=== PATIENT | male | born 1960 | race Caucasian/White ===

== ENCOUNTER → 2016-08-03 | Outpatient (REF) | payer BC ==
[~2016-08-03] MED LIST: /WARF25TA; /WARF5TA PO; ACCO20TA4; ACCU40TA PO; ACET65TA PO; ALEV220C2 PO; AMBI10TA; AMLO5CAP52 PO; BAYETAB2 PO; BISO5TAB2 PO; CENTTAB PO; COUM10TA PO; COUM7.5T PO; FENO160T10 PO; HYDR25TA6; NUCY100T8 PO; NUCY50TA9 PO; PERC10TA PO; PERC5TAB8; PERC7.5T12 PO; QUIN20TA PO; TRIC145T19; TYLE167L PO; imodium OR
[2016-08-03 12:16] LABS: ALBUMIN 4.1 GM/DL (3.2-5.2); ALBUMIN/GLOBULIN RATIO 1.37 (1.00-1.93); ALKALINE PHOSPHATASE 45 U/L (45-117); ALT/SGPT 37 U/L (12-78); ANION GAP 9 MEQ/L (8-16); AST/SGOT 24 U/L (15-37); BILIRUBIN,TOTAL 0.4 MG/DL (0.2-1.0); BLOOD UREA NITROGEN 23 MG/DL (7-18); CALCIUM LEVEL 9.1 MG/DL (8.5-10.1); CARBON DIOXIDE LEVEL 25 MEQ/L (21-32); CHLORIDE LEVEL 109 MEQ/L (98-107); CHOLESTEROL LEVEL 189 MG/DL (<200); CREATININE FOR GFR 1.27 MG/DL (0.70-1.30); GLOMERULAR FILTRATION RATE > 60.0 (>56); GLUCOSE, FASTING 107 MG/DL (70-105); POTASSIUM SERUM 4.5 MEQ/L (3.5-5.1); SODIUM LEVEL 143 MEQ/L (136-145); TOTAL PROTEIN 7.1 GM/DL (6.4-8.2); TRIGLYCERIDES LEVEL 172 MG/DL (<150)
== END ==
LOC: M SFHCPLAZ 08:01
PROVIDERS: ATTEND Internal Medicine
DX: Z00.00 Encounter for general adult medical examination without abnormal findings (principal); I10 Essential (primary) hypertension; E78.00 Pure hypercholesterolemia, unspecified; G47.30 Sleep apnea, unspecified

== ENCOUNTER → 2016-08-11 | Outpatient (REF) | payer BC ==
[~2016-08-11] MED LIST changes: +NUCY100T3 PO; -NUCY100T8 PO; +NUCY50TA6 PO; -NUCY50TA9 PO
== END ==
LOC: M SFHCPLAZ 08:06
PROVIDERS: ATTEND Internal Medicine
DX: R53.82 Chronic fatigue, unspecified (principal)

== ENCOUNTER → 2017-01-04 | Outpatient (CLI) | payer BC ==
[~2017-01-04] MED LIST changes: +ENERGY PO; +MULT1TAB10 PO; +TRAZ50TA11 PO; +[UNRECOGNIZED DRUG - OTHER] PO
[2017-01-04 10:32] LABS: MEAN CORPUSCULAR HEMOGLOBIN 31.2 pg (27.0-33.0); MEAN CORPUSCULAR HGB CONC 34.1 g/dl (32.0-36.5); MEAN CORPUSCULAR VOLUME 91.7 fl (80.0-96.0); PLATELET COUNT, AUTOMATED 148 10^3/uL (150-450); RED CELL DISTRIBUTION WIDTH 13.4 % (11.5-14.5); WHITE BLOOD COUNT 10.2 10^3/uL (4.0-10.0)
[2017-01-04 10:46] LABS: INR 0.96
[2017-01-04 10:49] LABS: ALBUMIN 3.9 GM/DL (3.2-5.2); ALBUMIN/GLOBULIN RATIO 1.11 (1.00-1.93); ALKALINE PHOSPHATASE 45 U/L (45-117); ALT/SGPT 33 U/L (12-78); ANION GAP 7 MEQ/L (8-16); AST/SGOT 26 U/L (7-37); BILIRUBIN,TOTAL 0.5 MG/DL (0.2-1.0); BLOOD UREA NITROGEN 16 MG/DL (7-18); CALCIUM LEVEL 9.3 MG/DL (8.5-10.1); CARBON DIOXIDE LEVEL 27 MEQ/L (21-32); CHLORIDE LEVEL 109 MEQ/L (98-107); CREATININE FOR GFR 1.23 MG/DL (0.70-1.30); GLOMERULAR FILTRATION RATE > 60.0 (>56); GLUCOSE, FASTING 99 MG/DL (70-105); POTASSIUM SERUM 4.4 MEQ/L (3.5-5.1); SODIUM LEVEL 143 MEQ/L (136-145); TOTAL PROTEIN 7.4 GM/DL (6.4-8.2)
[2017-01-04 10:56] LABS: PLT CLUMPS? POS FLAG; POS COUNT POS FLAG
[2017-01-04 10:57] LABS: ERYTHROCYTE SEDIMENTATION RATE 2 mm/hr (0-20)
--- NOTE | 2017-01-04 11:18 | REP ---
Clinical: Arthritis . Comparison: 12/06/2013 . Technique: PA and lateral. Findings: The mediastinum and cardiac silhouette are normal. The lung cast are clear and without acute consolidation, effusion, or pneumothorax. The skeletal structures are intact and normal. Impression: 1. No acute cardiopulmonary process. Signed by Min Herr MD 01/04/2017 11:09 A
--- NOTE | 2017-01-04 13:40 | ECGEPIP ---
Stationary ECG Study [facility] Test Date: 2017-01-04 Pat Name: HOMERO GUILLAUME Department: Room: - Gender: M [employer]: : [id number] Requested By: Austen Vela Order Number: [id number] Reading MD: Ana Henson Measurements Intervals [place] Rate: 50 P: 50 RI: 193 QRS: 18 QRSD: 86 T: 162 QT: 453 QTc: 414 Interpretive Statements SINUS BRADYCARDIA LEFT ATRIAL ENLARGEMENT MODERATE ST T-WAVE ABNORMALITY, CONSIDER LATERAL ISCHEMIA/LVH SIMILAR TO 12/06/13 [address] FOR [address]IGHTLY MORE ST DEPRESSION CLINICAL ALBINO Electronically Signed On 01-04-2017 13:39:42 EST by Ana Henson
== END ==
LOC: M ADMPAT 09:30
PROVIDERS: ATTEND Orthopaedic Surgery
DX: M17.12 Unilateral primary osteoarthritis, left knee (principal)

== ENCOUNTER → 2017-01-11 | Outpatient (REF) | payer BC | LOC: M SFHCPLAZ 08:31 | PROVIDERS: ATTEND Internal Medicine | DX: Z01.818 Encounter for other preprocedural examination (principal); M17.12 Unilateral primary osteoarthritis, left knee; N13.9 Obstructive and reflux uropathy, unspecified; R53.82 Chronic fatigue, unspecified ==

== ENCOUNTER 2017-01-17 07:06 | Inpatient (IN) | payer BC ==
--- NOTE | 2017-01-13 13:21 | HPE ---
DATE OF ADMISSION: 01/17/2017 ATTENDING PHYSICIAN: Dr. Vela CHIEF COMPLAINT: Left knee pain and stiffness. HISTORY: This a pleasant, 57-year-old male patient with progressively worsening left knee pain and stiffness who has failed to improve with conservative management. He has pain with weightbearing activities and activities of daily living. He was consented by Dr. Vela for a left total knee arthroplasty. X-rays notable for end-stage degenerative changes of the left knee. ALLERGIES: MORPHINE makes him nauseated. ZOCOR and LIPITOR cause joint pain, but he can take morphine it just makes him nauseated and jittery. CURRENT MEDICATIONS: Include: - Imodium 2 mg 1 tablet once per day - Aleve 220 mg 1 tablet once per day (Will discontinue that 5 days prior to surgery.) - Centrum Silver 1 tablet once per day - Cialis 20 mg 1 tablet as needed - amlodipine/benazepril 5/40 mg 1 tablet once per day - as well as bisoprolol/hydrochlorothiazide 5/6.25 mg 1 tablet once per day - fenofibrate 160 mg 1 tablet once per day - trazodone 50 mg 1 tablet at bedtime MEDICAL HISTORY: Includes symptomatic osteoarthritis of the left knee, hypertension, elevated cholesterol, sleep apnea, elevated glucose, obstructive uropathy, chronic fatigue, insomnia. He was directed to bring his continuous positive airway pressure (CPAP) machine with him to the hospital. SURGICAL HISTORY: Includes left total hip revision, left knee scope, right hip replacement, right knee replacement, hernia repair. SOCIAL HISTORY: He does not smoke. He uses alcohol on occasional basis. 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 REVIEW OF SYSTEMS: Denies fever or chills. Denies chest pain, shortness breath or cough. Denies difficulty breathing. Denies abdominal pain. Denies nausea or vomiting. Notes persistent pain in his left knee with weightbearing activities and activities of living of daily living. Denies recent upper respiratory infection (URI) or urinary tract infection (UTI) symptoms. Exam today reveals an alert, well-nourished, well-developed male patient who walks with a slight limping gait favoring his left side. Exam of left knee does reveal tenderness mainly over the medial and posterior aspect in the knee. Patellar grind is irritable. Skin is intact. No erythema, edema or ecchymosis. Near full range of motion of the knee with some irritability with extremes of range of motion. The calf is soft, nontender to palpation. Can sensate light touch. Dorsalis pedis, posterior tibialis pulses are palpable. No irritability with hip range of motion on the left side. Neck supple without adenopathy or jugular venous distention (JVD). Lungs are clear to auscultation without rales or wheeze. Heart regular rate and rhythm. Abdomen: Bowel sounds are present. Height 67 inches. Weight 210 pounds. Temperature 97.8. Blood pressure 127/64. Pulse 72. Respirations 12. LABORATORY DATA: His sinus culture is positive for staph. He was treated per the protocol. Urinalysis within normal limits. Urine culture no growth. Prothrombin time 12.9, INR 0.96. Glucose 99. BUN 16. Creatinine 1.23. Sodium 143. Potassium 4.4. WBC count 10.2. RBC count 5.0. Hemoglobin 15.8. Hematocrit 46.4. Chest x-ray: No acute cardiopulmonary disease process noted. EKG: Sinus bradycardia. IMPRESSION: Symptomatic osteoarthritis of the left knee. PLAN: Consented for left total knee arthroplasty by Dr. Vela.
[2017-01-17] VITALS (8 sets, daily range): BP systolic 124–141; BP diastolic 66–84; O2SAT 98
[~2017-01-17] VITALS: Ht 175.3 cm; Wt 94.8 kg
[2017-01-17] MEDS ORDERED: LR 1,000 ML IV SCH ×2 (07:15→11:30)
[2017-01-17 07:49] LABS: INR 1.03
[2017-01-17] MEDS ORDERED: PROPOFOL 200 MG/20 ML VIAL As Ordered ONE (08:06)
[2017-01-17] MEDS ORDERED: MIDAZOLAM INJ 2 MG/2 ML VIAL (J2250) As Ordered ONE ×2 (08:06→08:35)
[2017-01-17] MEDS ORDERED: fentaNYL 100 MCG/2 ML INJECTION (J3010) As Ordered ONE ×2 (08:06→08:35)
[2017-01-17] MEDS ORDERED: LIDOCAINE 2% INJ 100 MG/5 ML SDV (FOR ANES.) As Ordered ONE (08:06)
[2017-01-17] MEDS ORDERED: BUPIVACAINE LIPOSOME/PF 1.3% 20 ML VIAL (13.3MG/ML)(EXPAREL) As Ordered ONE (08:45)
[2017-01-17] MEDS ORDERED: ceFAZolin 1GM INJ (J0690 PER 500MG) As Ordered ONE (08:45)
[2017-01-17] MEDS ORDERED: EPINEPHrine INJ 1 MG/ML 1ML AMP As Ordered ONE (09:22)
[2017-01-17] MEDS ORDERED: TRANEXAMIC ACID 100 MG/ML 10ML VIAL As Ordered ONE (09:22)
[2017-01-17] MEDS ORDERED: ROPIvacaine 0.5% 30 ML INJECTION (J2795 PER 1MG) ONE (09:38)
[2017-01-17] MEDS ORDERED: dexameTHASONE 10 MG/1 ML VIAL PRES.FREE (J1100) ONE (09:38)
[2017-01-17] MEDS ORDERED: LIDOCAINE 1% MDV 20ML VIAL ONE (09:38)
--- NOTE | 2017-01-17 09:38 | IPN ---
DATE: 01/17/2017 Patient seen and examined. He wished to go ahead with a knee replacement. He understands the nature of this, the risks of bleeding, infection, damage to nerves, vessels, persistent pain, wear loosening, blood clots, medical problems, among others. A preoperative clearance was obtained. He wishes to proceed.
[2017-01-17] MEDS ORDERED: MIDAZOLAM INJ 2 MG/2 ML VIAL (J2250) IV ONE (10:00)
[2017-01-17] MEDS ORDERED: fentaNYL 100 MCG/2 ML INJECTION (J3010) IV ONE (10:00)
[2017-01-17] MEDS ORDERED: fentaNYL 100 MCG/2 ML INJECTION (J3010) IV PRN (11:30)
[2017-01-17] MEDS ORDERED: HYDROmorphone HCL 1 MG/ML SYRINGE (J1170) IV PRN ×2 (11:30→11:45)
[2017-01-17] MEDS ORDERED: ONDANSETRON 4MG/2ML VIAL (J2405) IV PRN ×2 (11:30→11:45)
[2017-01-17] MEDS ORDERED: PERCOCET 5MG/325MG TAB PO PRN (11:30)
[2017-01-17] MEDS ORDERED: FLEET ENEMA PR PRN (11:45)
[2017-01-17] MEDS: LR 1,000 ML IV SCH (11:45)
[2017-01-17] MEDS ORDERED: ACETAMINOPHEN TAB 650MG DOSE (2X325MG) PO PRN (11:45)
--- NOTE | 2017-01-17 13:30 | IPNPDOC ---
Subjective Date Seen The patient was seen on 01/17/17. Subjective Chief Complaint/HPI The patient is a 57-year-old male admitted with a reason for visit of Left Knee Arthritis. Events since last encounter Patient s/p elective left total knee arthroplasty. Surgery was uneventful. No complaints at present. denies any nausea or vomiting , denies any chest pain or sob . denies any abdominal pain. Objective Physical Examination General Exam: Positive: Alert, Cooperative, No Acute Distress Eye Exam: Positive: PERRLA, Conjunctiva & lids normal, EOMI, Negative: Sclera icteric ENT Exam: Positive: Atraumatic, Mucous membr. moist/pink, Pharynx Normal Neck Exam: Positive: Supple, Negative: JVD, thyromegaly Chest Exam: Positive: Clear to auscultation, Normal air movement Heart Exam: Positive: Rate Normal, Regular Rhythm, Normal S1, Normal S2, Negative: Murmurs, Rubs Extremity Exam: Positive: Normal pulses, Negative: Clubbing, Cyanosis, Edema Skin Exam: Positive: Nl turgor and temperature, Negative: Rash, Breakdown Assessment /Plan Problems (1) Total knee replacement status Status: Acute Problem Text: left total knee replacement for advanced osteoarthritis. (2) ROSEMARIE (obstructive sleep apnea) Status: Chronic Problem Text: does not use CPAP will place on ROSEMARIE protocol (3) Hypertension Status: Chronic Problem Text: will continue with bisoprolol and amlodipine will hold benzapril and hctz (4) Hyperlipidemia Status: Chronic (5) Insomnia Status: Chronic Problem Text: trazodone prn (6) Periodic limb movement sleep disorder Status: Chronic Problem Text: Not on any medications. Plan/VTE VTE Prophylaxis Ordered?: Yes VS, I&O, 24H, [facility] Vital Signs/I&O Vital Signs Date Time Temp Pulse Resp B/P (MAP) Pulse Ox O2 Delivery O2 Flow Rate FiO2 01/17/17 12:45 97.6 52 16 127/80 (96) 96 01/17/17 12:45 Room Air 01/17/17 09:25 2 01/17/17 08:51 99 I&O- Last 24 Hours up to 6 AM 01/18/17 06:00 Intake Total 1280 ml Output Total 600 ml Balance 680 ml Laboratory Data 24H LABS Laboratory Tests 2 01/17/17 07:24: Prothrombin Time 13.6, Prothromb Time International Ratio 1.03 CATY SANTO MD Jan 17, 2017 13:30
[2017-01-17] MEDS: HYDROmorphone HCL 1 MG/ML SYRINGE (J1170) IV PRN ×2 (16:15→20:48)
[2017-01-17] MEDS ORDERED: WARFARIN SOD 5 MG TAB PO ONE (17:00)
--- NOTE | 2017-01-17 17:54 | RO ---
DATE OF PROCEDURE: 01/17/2017 PREOPERATIVE DIAGNOSIS: Left knee osteoarthritis with valgus alignment. POSTOPERATIVE DIAGNOSIS: Left knee osteoarthritis with valgus alignment. PROCEDURE: Left total knee arthroplasty using a PFC rotating platform posterior stabilized size 4 femur, size 4 tibia and a 35 patellar button with a 12.5 polyethylene. SURGEON: Dr. Austen Vela RELIEF MAP MODELER: DENA Arshad ANESTHESIA: Spinal. ESTIMATED BLOOD LOSS: Minimal. COMPLICATIONS: None. INDICATIONS: A 57-year-old gentleman who has advanced arthritis of his left knee. It has been refractory to conservative management, and he wished to go ahead with surgical treatment. He has been through multiple joints before. He understood the nature of this, the risks of bleeding, infection, damage to nerves, vessels, persistent pain, wear, loosening, blood clots, medical problems, , among others. DESCRIPTION OF PROCEDURE: The patient was taken to operating room, placed in supine position after spinal anesthesia was induced. The left lower extremity was prepped and draped in the usual sterile fashion. A time-out was performed. I then created a longitudinal incision over the anterior aspect of the knee. Sharp dissection was carried down through subcutaneous tissue. I performed a medial parapatellar arthrotomy, controlled hemostasis with cautery, everted the patella, flexed the knee up. He had severe arthritis, particularly involving the lateral compartment. There was significant dishing of his lateral tibial plateau. He had multiple osteophytes removed with a rongeur. I used the canal initiating reamer on the femoral side followed by the intramedullary femoral guide, which was pinned in place by the group fitness assistant department head at 7 degrees of valgus and a 10 mm cut. This seemed to be an appropriate cut. We did not have to take an extra 2 mm. The distal cut was made, the sizing block was used and sized to be a 4. I then placed the cutting block, made the remaining four cuts, protecting soft tissues at all times while we used the saw. The tibial alignment guide was then placed, placed in appropriate amount of valgus and posterior slope. I pinned this in place at about 6 off of the high side as I was a little nervous about going much lower. This seemed to be a quite sizable cut, but I left the block so that I could drop it if I needed to. The proximal tibia cut was made, and this appeared be an excellent cut. I was able to get underneath the dishing on the lateral side and good position of and alignment of the cut was noted. The box cut was then made, the size 4 box cut was pinned in place, the remaining cuts were made. I then prepared the tibial tray size, a size 4 tray fit nicely. I drilled and broached. I also removed soft tissue from either side of the knee and osteophytes posteriorly. Good soft tissue balance was noted. A 12.5 spacer was then trialed both in flexion and extension. This seemed to be an excellent fit and an excellent alignment. There was some mild valgus alignment, which we were anticipating. The trial components were then placed and had excellent alignment and range of motion and stability. A 12.5 polyethylene was inserted. I then freehand cut the patella and sized to be a 35. Drill holes were placed. We removed the trial components and irrigated copiously, also used some Exparel around the periosteum. I copiously again irrigated and dried the surfaces as the group fitness assistant department head prepared the bone cement in the modern technique. I then cemented on the tibial side, impacted it in place, cemented on the femoral component and impacted it in place, removed excess bone cement, placed the polyethylene, brought the knee out in extension, cemented on the patella and removed excess bone cement. The knee was copiously irrigated. TXA solution was placed. The remaining Exparel solution was injected around the knee and final deep irrigation was performed. The patellar clamp was removed when the cement was hard. We then closed the deep layer with #1 Vicryl suture in an interrupted fashion followed by a running #1 Stratafix suture in both directions. Irrigated, closed the subcu with #2-0 Vicryl, the skin with rosamaria. Sterile dressing was applied. The tourniquet was deflated. He was taken to recovery room in stable condition. There were no known complications. The plan will be routine postop. The group fitness assistant department head was instrumental in holding retractors, making one of the distal femoral cuts, assisting in wound closure and assisting in providing exposure.
[2017-01-17] MEDS ORDERED: traZODone 50 MG TAB PO SCH (21:00)
[2017-01-18] MEDS: LR 1,000 ML IV SCH (01:05)
[2017-01-18] MEDS: HYDROmorphone HCL 1 MG/ML SYRINGE (J1170) IV PRN (01:41)
[2017-01-18 06:00] VITALS: BP 115/72
[2017-01-18] MEDS ORDERED: traMADol 50 MG TAB PO PRN ×2 (06:45)
[2017-01-18 06:56] LABS: MEAN CORPUSCULAR HEMOGLOBIN 30.7 pg (27.0-33.0); MEAN CORPUSCULAR HGB CONC 33.8 g/dl (32.0-36.5); MEAN CORPUSCULAR VOLUME 90.7 fl (80.0-96.0); PLATELET COUNT, AUTOMATED 158 10^3/uL (150-450); RED CELL DISTRIBUTION WIDTH 13.2 % (11.5-14.5); WHITE BLOOD COUNT 15.4 10^3/uL (4.0-10.0)
[2017-01-18 07:08] LABS: INR 1.32
[2017-01-18 07:15] LABS: ANION GAP 8 MEQ/L (8-16); BLOOD UREA NITROGEN 18 MG/DL (7-18); CALCIUM LEVEL 8.6 MG/DL (8.5-10.1); CARBON DIOXIDE LEVEL 25 MEQ/L (21-32); CHLORIDE LEVEL 108 MEQ/L (98-107); CREATININE FOR GFR 1.06 MG/DL (0.70-1.30); GLOMERULAR FILTRATION RATE > 60.0 (>56); GLUCOSE, FASTING 121 MG/DL (70-105); POTASSIUM SERUM 4.3 MEQ/L (3.5-5.1); SODIUM LEVEL 141 MEQ/L (136-145)
[2017-01-18] MEDS ORDERED: TRAM50TA2 PO (08:59)
[2017-01-18] MEDS ORDERED: COUM2.5T17 PO (08:59)
[2017-01-18] MEDS ORDERED: MIRALAX *UNIT DOSE* 17GM PACKET PO SCH (09:00)
[2017-01-18] MEDS ORDERED: amLODIPine 5 MG TAB PO SCH (09:00)
[2017-01-18] MEDS ORDERED: BISOPROLOL FUMARATE 5 MG TAB PO SCH (09:00)
[2017-01-18] MEDS ORDERED: MOM 30ML SUSPENSION UDC PO SCH (09:00)
[2017-01-18] MEDS ORDERED: SENOKOT S TAB PO SCH (09:00)
[2017-01-18 09:42] VITALS: BP 115/72
--- NOTE | 2017-01-18 11:02 | REP ---
Left knee series: Two views. History: Postoperative images. Findings: The patient is status post left knee arthroplasty. Anterior skin rosamaria are seen. There is soft tissue swelling and a soft tissue emphysema noted in and about the knee. The tibial, patellar, and femoral prosthetic components are well aligned with their [place] bones. There are foci of ossification at the anterior tibial apophysis in the region of the distal patellar tendon which may reflect chronic patellar tendonitis or old Red[place]-Schlatter's disease. Impression: Status post left knee arthroplasty. Signed by Ralph Humphrey MD 01/18/2017 03:58 P
[2017-01-18] MEDS ORDERED: WARFARIN SOD 7.5 MG TAB PO ONE (17:00)
[2017-01-18] MEDS ORDERED: WARFARIN SOD 5 MG TAB PO ONE (17:00)
== END 2017-01-18 13:10 | disposition home or self-care (01) | DRG 302 ==
LOC: M OR 07:06 → M MS5PR 13:00
PROVIDERS: ADMIT Orthopaedic Surgery; ATTEND Orthopaedic Surgery
PROC: 0SRD0J9 Replacement of Left Knee Joint with Synthetic Substitute, Cemented, Open Approach (ICD-10-PCS; principal; 2017-01-17 09:30)
DX: M17.12 Unilateral primary osteoarthritis, left knee (principal); I10 Essential (primary) hypertension; E78.5 Hyperlipidemia, unspecified; G47.33 Obstructive sleep apnea (adult) (pediatric); R53.83 Other fatigue; G47.61 Periodic limb movement disorder; G47.00 Insomnia, unspecified; R73.02 Impaired glucose tolerance (oral); Z96.642 Presence of left artificial hip joint; Z96.651 Presence of right artificial knee joint; Z88.5 Allergy status to narcotic agent; Z88.8 Allergy status to other drugs, medicaments and biological substances; Z79.899 Other long term (current) drug therapy

== ENCOUNTER → 2017-01-20 | Outpatient (REF) | payer BC ==
[~2017-01-20] MED LIST changes: +COUM2.5T17 PO; +TRAM50TA2 PO
[2017-01-20 12:09] LABS: INR 1.79
== END ==
LOC: M LABDRAW1 10:31
PROVIDERS: ATTEND Nurse Practitioner Family
DX: Z51.81 Encounter for therapeutic drug level monitoring (principal); Z79.01 Long term (current) use of anticoagulants

== ENCOUNTER → 2017-01-24 | Outpatient (REF) | payer BC ==
[2017-01-24 11:36] LABS: INR 4.4
== END ==
LOC: M LABDRAW1 09:04
PROVIDERS: ATTEND Nurse Practitioner Family
DX: Z51.81 Encounter for therapeutic drug level monitoring (principal); Z79.01 Long term (current) use of anticoagulants

== ENCOUNTER → 2017-01-27 | Outpatient (REF) | payer BC ==
[2017-01-27 12:04] LABS: INR 2.86
== END ==
LOC: M LABDRAW1 11:46
PROVIDERS: ATTEND Nurse Practitioner Family
DX: Z79.01 Long term (current) use of anticoagulants (principal)

== ENCOUNTER → 2017-02-01 | Outpatient (REF) | payer BC ==
[2017-02-01 12:51] LABS: INR 2.7
== END ==
LOC: M LABDRAW1 11:04
PROVIDERS: ATTEND Nurse Practitioner Family
DX: Z51.81 Encounter for therapeutic drug level monitoring (principal); Z79.01 Long term (current) use of anticoagulants

== ENCOUNTER → 2017-02-03 | Outpatient (REF) | payer BC ==
[2017-02-03 11:28] LABS: INR 2.27
== END ==
LOC: M LABDRAW1 09:46
DX: Z51.81 Encounter for therapeutic drug level monitoring (principal); Z79.01 Long term (current) use of anticoagulants
CPT/HCPCS: 85610

== ENCOUNTER → 2017-02-08 | Outpatient (REF) | payer BC ==
[2017-02-08 11:08] LABS: INR 1.94; PROTHROMBIN TIME 22.8 SECONDS (12.4-14.5)
== END ==
LOC: M LABDRAW1 10:26
DX: Z51.81 Encounter for therapeutic drug level monitoring (principal); Z79.01 Long term (current) use of anticoagulants
CPT/HCPCS: 85610

== ENCOUNTER → 2017-02-10 | Outpatient (REF) | payer BC ==
[2017-02-10 12:04] LABS: INR 1.91; PROTHROMBIN TIME 22.5 SECONDS (12.4-14.5)
== END ==
LOC: M LABDRAW1 10:10
DX: Z51.81 Encounter for therapeutic drug level monitoring (principal); Z79.01 Long term (current) use of anticoagulants
CPT/HCPCS: 85610

== ENCOUNTER → 2017-02-14 | Outpatient (REF) | payer BC ==
[2017-02-14 12:04] LABS: PROTHROMBIN TIME 18.5 SECONDS (12.4-14.5)
== END ==
LOC: M LABDRAW1 10:18
DX: Z79.01 Long term (current) use of anticoagulants (principal)
CPT/HCPCS: 85610

== ENCOUNTER → 2017-09-02 | Outpatient (REF) | payer BC ==
[2017-09-02 12:09] LABS: HEMATOCRIT 48.4 % (42.0-52.0); HEMOGLOBIN 16.5 g/dl (13.5-17.5); MEAN CORPUSCULAR HEMOGLOBIN 31.5 pg (27.0-33.0); MEAN CORPUSCULAR HGB CONC 34.1 g/dl (32.0-36.5); MEAN CORPUSCULAR VOLUME 92.5 fl (80.0-96.0); PLATELET COUNT, AUTOMATED 156 10^3/uL (150-450); RED BLOOD COUNT 5.23 10^6/uL (4.30-6.10); RED CELL DISTRIBUTION WIDTH 13.9 % (11.5-14.5); WHITE BLOOD COUNT 6.3 10^3/uL (4.0-10.0)
[2017-09-02 12:39] LABS: ALBUMIN 4.5 GM/DL (3.2-5.2); ALKALINE PHOSPHATASE 46 U/L (45-117); ALT/SGPT 32 U/L (12-78); ANION GAP 7 MEQ/L (8-16); AST/SGOT 25 U/L (7-37); BILIRUBIN,TOTAL 0.6 MG/DL (0.2-1.0); BLOOD UREA NITROGEN 21 MG/DL (7-18); CARBON DIOXIDE LEVEL 29 MEQ/L (21-32); CHLORIDE LEVEL 109 MEQ/L (98-107); CHOLESTEROL LEVEL 157 MG/DL (<200); CHOLESTEROL RISK RATIO 3.568 (<5); CREATININE FOR GFR 1.25 MG/DL (0.70-1.30); GLOMERULAR FILTRATION RATE > 60.0 (>56); GLUCOSE, FASTING 101 MG/DL (70-100); HDL CHOLESTEROL 44 MG/DL (>40); LDL CHOLESTEROL 94.8 MG/DL (<100); NON-HDL-C 113 MG/DL; POTASSIUM SERUM 4.6 MEQ/L (3.5-5.1); SODIUM LEVEL 145 MEQ/L (136-145); TOTAL PROTEIN 7.5 GM/DL (6.4-8.2); TRIGLYCERIDES LEVEL 91 MG/DL (<150)
[2017-09-02 12:42] LABS: ESTIMATED AVERAGE GLUCOSE 117 MG/DL (60-110); HEMOGLOBIN A1c 5.7 %
== END ==
LOC: M SFHCPLAZ 08:37
DX: Z00.00 Encounter for general adult medical examination without abnormal findings (principal); G47.30 Sleep apnea, unspecified; I10 Essential (primary) hypertension; R73.01 Impaired fasting glucose; E78.00 Pure hypercholesterolemia, unspecified
CPT/HCPCS: 83735

== ENCOUNTER → 2018-09-05 | Outpatient (REF) | payer BC ==
[~2018-09-05] MED LIST changes: -/WARF25TA; -/WARF5TA PO; +AMLO5CAP45 PO; -AMLO5CAP52 PO; +COUM1TAB17 PO; +COUM1TAB18; +NUCY100T16 PO; -NUCY100T3 PO; +NUCY50TA19 PO; -NUCY50TA6 PO; +TRAZ-252 PO; -TRAZ50TA11 PO
[2018-09-05 10:11] LABS: HEMATOCRIT 51.1 % (42.0-52.0); MEAN CORPUSCULAR HEMOGLOBIN 31.1 pg (27.0-33.0); MEAN CORPUSCULAR HGB CONC 33.3 g/dl (32.0-36.5); MEAN CORPUSCULAR VOLUME 93.6 fl (80.0-96.0); PLATELET COUNT, AUTOMATED 172 10^3/uL (150-450); RED BLOOD COUNT 5.46 10^6/uL (4.30-6.10); WHITE BLOOD COUNT 6.8 10^3/uL (4.0-10.0)
[2018-09-05 10:19] LABS: ALBUMIN 4.3 GM/DL (3.2-5.2); BILIRUBIN,TOTAL 0.4 MG/DL (0.2-1.0); CALCIUM LEVEL 9.9 MG/DL (8.8-10.2); CHOLESTEROL RISK RATIO 5.081 (<5); CREATININE FOR GFR 1.4 MG/DL (0.70-1.30); MAGNESIUM LEVEL 2.4 MG/DL (1.8-2.4); POTASSIUM SERUM 4.4 MEQ/L (3.5-5.1); TOTAL PROTEIN 7.5 GM/DL (6.4-8.2)
[2018-09-05 10:48] LABS: HEMOGLOBIN A1c 6.2 %
== END ==
LOC: M SFHCPLAZ 07:59
PROVIDERS: ATTEND Internal Medicine
DX: Z00.00 Encounter for general adult medical examination without abnormal findings (principal); G47.30 Sleep apnea, unspecified; I10 Essential (primary) hypertension; R73.01 Impaired fasting glucose; E78.00 Pure hypercholesterolemia, unspecified

== ENCOUNTER → 2020-03-14 | Outpatient (CLI) | payer SELFPAY | LOC: M LABSMTC 09:49 | PROVIDERS: ATTEND Pediatrics | DX: Z20.822 Contact with and (suspected) exposure to COVID-19 (principal) ==

== ENCOUNTER → 2020-07-16 | Outpatient (CLI) | payer BC ==
--- NOTE | 2020-07-16 11:08 | REPPI ---
INDICATION: M70.21 OLECRANON BURSITIS OF RIGHT ELBOW COMPARISON: None. TECHNIQUE: AP, lateral, bilateral oblique views of the right elbow. FINDINGS: Lateral view demonstrates moderate to significant soft tissue swelling overlying the olecranon process/posterior elbow consistent with bursitis. Underlying early advanced osteoarthritic degenerative changes with cortical irregularities and osteophytosis noted. No acute fracture or dislocation. Anterior fat pad is in normal position without evidence for anterior joint effusion. IMPRESSION: Findings consistent with olecranon bursitis. <Electronically signed by Min Herr > 07/16/20 1102
== END ==
LOC: M PLAIMG 10:40
PROVIDERS: ATTEND Physician Assistant
DX: M70.21 Olecranon bursitis, right elbow (principal); B96.89 Other specified bacterial agents as the cause of diseases classified elsewhere; M71.10 Other infective bursitis, unspecified site

== ENCOUNTER → 2020-07-16 | Outpatient (REF) | payer BC ==
[2020-07-16 11:48] LABS: BASO % 0.4 % (0.0-1.0); EOS # 0.1 10^3/uL (0.0-0.5); EOS % 1.1 % (0.0-3.0); HEMOGLOBIN 16.7 g/dl (13.5-17.5); LYMPH # 1.4 10^3/uL (1.5-5.0); LYMPH % 14.2 % (24.0-44.0); MEAN CORPUSCULAR HGB CONC 33.4 g/dl (32.0-36.5); MEAN CORPUSCULAR VOLUME 95.8 fl (80.0-96.0); MONO # 0.7 10^3/uL (0.0-0.8); MONO % 7.5 % (2.0-8.0); NEUTROPHILS # 7.4 10^3/uL (1.5-8.5); NEUTROPHILS % 76.5 % (36.0-66.0); PLATELET COUNT, AUTOMATED 134 10^3/uL (150-450); RED BLOOD COUNT 5.22 10^6/uL (4.30-6.10); WHITE BLOOD COUNT 9.6 10^3/uL (4.0-10.0)
[2020-07-16 12:17] LABS: ERYTHROCYTE SEDIMENTATION RATE 7 mm/hr (0-20)
[2020-07-16 12:21] LABS: ALBUMIN 3.9 GM/DL (3.2-5.2); ALT/SGPT 29 U/L (12-78); BILIRUBIN,TOTAL 0.9 MG/DL (0.2-1.0); BLOOD UREA NITROGEN 18 MG/DL (7-18); C REACTIVE PROTEIN QUANTITATIV 6.92 MG/DL (0.00-0.30); CALCIUM LEVEL 9.3 MG/DL (8.8-10.2); CARBON DIOXIDE LEVEL 31 MEQ/L (21-32); CHLORIDE LEVEL 105 MEQ/L (98-107); CREATININE FOR GFR 0.92 MG/DL (0.70-1.30); GLOMERULAR FILTRATION RATE > 60.0 (>49); GLUCOSE, FASTING 91 MG/DL (70-100); POTASSIUM SERUM 4.8 MEQ/L (3.5-5.1); SODIUM LEVEL 141 MEQ/L (136-145); TOTAL PROTEIN 7.5 GM/DL (6.4-8.2)
== END ==
LOC: M SFHCPLAZ 10:41
PROVIDERS: ATTEND Physician Assistant
DX: M70.21 Olecranon bursitis, right elbow (principal)

== ENCOUNTER → 2020-10-09 | Outpatient (REF) | payer BC ==
[2020-10-09 17:46] LABS: SOURCE, BODY FLUID LFT ELBOW; SYNOVIAL FLUID COLOR ORANGE (COLORLESS)
[2020-10-09 18:37] LABS: CRYSTALS, BODY FLUID NONE SEEN (NONE SEEN); SOURCE, BODY FLUID CRYSTALS LFT ELBOW
[2020-10-09 21:21] LABS: SOURCE, BODY FLUID GLUCOSE LFT ELBOW
[2020-10-10 10:08] LABS: MUCIN CLOT TEST 4+ (4+)
[2020-10-10 10:12] LABS: BODY FLUID RHEUMATOID SCREEN NEGATIVE (NEGATIVE)
== END ==
LOC: M LAB REF 17:13
PROVIDERS: ATTEND Physician Assistant
DX: M70.22 Olecranon bursitis, left elbow (principal)

== ENCOUNTER → 2021-06-25 | Outpatient (REF) | payer BC ==
[~2021-06-25] MED LIST changes: -AMLO5CAP45 PO; +AMLO5CAP53 PO; +BISO1TAB18 PO; -BISO5TAB2 PO
[2021-06-25 14:04] LABS: HEMATOCRIT 50.7 % (42.0-52.0); MEAN CORPUSCULAR HGB CONC 33.5 g/dl (32.0-36.5); MEAN CORPUSCULAR VOLUME 95.5 fl (80.0-96.0); PLATELET COUNT, AUTOMATED 170 10^3/uL (150-450); RED BLOOD COUNT 5.31 10^6/uL (4.30-6.10); WHITE BLOOD COUNT 6.4 10^3/uL (4.0-10.0)
[2021-06-25 14:11] LABS: ALBUMIN 4.3 GM/DL (3.2-5.2); ALT/SGPT 42 U/L (12-78); BILIRUBIN,TOTAL 0.8 MG/DL (0.2-1.0); BLOOD UREA NITROGEN 18 MG/DL (7-18); CALCIUM LEVEL 9.3 MG/DL (8.8-10.2); CARBON DIOXIDE LEVEL 28 MEQ/L (21-32); CHLORIDE LEVEL 109 MEQ/L (98-107); CHOLESTEROL LEVEL 207 MG/DL (<200); CREATININE FOR GFR 1.25 MG/DL (0.70-1.30); GLOMERULAR FILTRATION RATE > 60.0 (>49); GLUCOSE, FASTING 115 MG/DL (70-100); HDL CHOLESTEROL 46 MG/DL (>40); LDL CHOLESTEROL 139 MG/DL (<100); NON-HDL-C 161 MG/DL; POTASSIUM SERUM 4.4 MEQ/L (3.5-5.1); SODIUM LEVEL 143 MEQ/L (136-145); TOTAL PROTEIN 7.4 GM/DL (6.4-8.2); TRIGLYCERIDES LEVEL 110 MG/DL (<150)
[2021-06-25 14:16] LABS: VITAMIN B12 LEVEL > 2000 PG/ML
[2021-06-25 14:32] LABS: MALB URINE SIEMENS 57.2 MG/L; MAU/CREAT RATIO 37.1 MCG/MG (0.0-30.0)
[2021-06-25 15:20] LABS: HEMOGLOBIN A1c 5.8 %
[2021-06-26 18:07] LABS: TESTOSTERONE FREE (DIRECT) 10.7 pg/mL (6.6-18.1)
[2021-06-26 18:59] LABS: FOLATE > 24.0 NG/ML
== END ==
LOC: M SFHCPLAZ 06-24 09:42
PROVIDERS: ATTEND Internal Medicine
DX: Z00.00 Encounter for general adult medical examination without abnormal findings (principal); E78.00 Pure hypercholesterolemia, unspecified; G47.30 Sleep apnea, unspecified; N52.9 Male erectile dysfunction, unspecified; R53.82 Chronic fatigue, unspecified; R73.01 Impaired fasting glucose; Z11.59 Encounter for screening for other viral diseases; Z12.5 Encounter for screening for malignant neoplasm of prostate
CPT/HCPCS: 80053; 80061; 82043; 82607; 82746; 83036; 83735; 84402; 84403; 84443; 85027; 86803; G0103

== ENCOUNTER → 2021-07-02 | Outpatient (REF) | payer BC | LOC: M SMT 12:54 | PROVIDERS: ATTEND Physician Assistant | DX: R97.20 Elevated prostate specific antigen [PSA] (principal) ==

== ENCOUNTER → 2021-08-11 | Outpatient (REF) | payer BC | LOC: M SMT 13:44 | PROVIDERS: ATTEND Urology | DX: R97.20 Elevated prostate specific antigen [PSA] (principal) | CPT/HCPCS: 88341; 88342; G0416 ==

== ENCOUNTER → 2021-09-29 | Outpatient (CLI) | payer BC | LOC: M EKG 15:13 | PROVIDERS: ATTEND Orthopaedic Surgery | DX: Z01.810 Encounter for preprocedural cardiovascular examination (principal); S46.312A Strain of muscle, fascia and tendon of triceps, left arm, initial encounter; R94.31 Abnormal electrocardiogram [ECG] [EKG] ==

== ENCOUNTER → 2022-02-18 | Outpatient (CLI) | payer BC ==
[2022-02-19 23:07] LABS: PSA % FREE 27.1 % (.); PSA FREE 1.84 ng/mL; PSA TOTAL 6.8 ng/mL (0.0-4.0)
== END ==
LOC: M PLALAB 08:46
PROVIDERS: ATTEND Urology
DX: R97.20 Elevated prostate specific antigen [PSA] (principal)

== ENCOUNTER → 2022-06-16 | Outpatient (CLI) | payer BC ==
[2022-06-16 10:49] LABS: HEMATOCRIT 48.2 % (42.0-52.0); HEMOGLOBIN 16.4 g/dl (13.5-17.5); MEAN CORPUSCULAR HEMOGLOBIN 32.3 pg (27.0-33.0); MEAN CORPUSCULAR VOLUME 94.9 fl (80.0-96.0); PLATELET COUNT, AUTOMATED 127 10^3/uL (150-450); RED BLOOD COUNT 5.08 10^6/uL (4.30-6.10); WHITE BLOOD COUNT 7.6 10^3/uL (4.0-10.0)
[2022-06-16 11:07] LABS: HEMOGLOBIN A1c 5.5 % (4.0-6.0)
[2022-06-16 11:11] LABS: ALBUMIN 4.4 G/DL (3.2-5.2); ALKALINE PHOSPHATASE 54 U/L (46-116); ALT/SGPT 30 U/L (7.0-40); AST/SGOT 29 U/L (<34); BILIRUBIN,TOTAL 0.5 MG/DL (0.3-1.2); BLOOD UREA NITROGEN 21 MG/DL (9-23); CALCIUM LEVEL 9.5 MG/DL (8.3-10.6); CARBON DIOXIDE LEVEL 29 MMOL/L (20-31); CHLORIDE LEVEL 110 MMOL/L (98-107); CHOLESTEROL LEVEL 169 MG/DL (<200); CHOLESTEROL RISK RATIO 4.48 (<5); CREATININE FOR GFR 1.11 MG/DL (0.70-1.30); GLOMERULAR FILTRATION RATE > 60.0 (>49); GLUCOSE, FASTING 96 MG/DL (74-106); HDL CHOLESTEROL 37.7 MG/DL (>40); LDL CHOLESTEROL 94.5 MG/DL (<100); NON-HDL-C 131.3 MG/DL; POTASSIUM SERUM 4.6 MMOL/L (3.5-5.1); SODIUM LEVEL 141 MMOL/L (136-145); TOTAL PROTEIN 7.2 G/DL (5.7-8.2); TRIGLYCERIDES LEVEL 184 MG/DL (<150)
== END ==
LOC: M PLALAB 08:47
PROVIDERS: ATTEND Family Medicine
DX: I11.9 Hypertensive heart disease without heart failure (principal); G47.30 Sleep apnea, unspecified; R73.03 Prediabetes; E78.5 Hyperlipidemia, unspecified

== ENCOUNTER → 2022-06-17 | Outpatient (CLI) | payer BC ==
[~2022-06-17] MED LIST changes: +PROHANCE 279.3MG/ML 15ML VIAL ONE; +PROHANCE 279.3MG/ML 5ML VIAL ONE
== END ==
LOC: M PLAIMG 08:04
PROVIDERS: ATTEND Physician Assistant Surgical
DX: S46.122A Laceration of muscle, fascia and tendon of long head of biceps, left arm, initial encounter (principal); X58.XXXA Exposure to other specified factors, initial encounter; M25.412 Effusion, left shoulder; M75.22 Bicipital tendinitis, left shoulder
CPT/HCPCS: 73220; A9576

== ENCOUNTER → 2022-08-17 | Outpatient (CLI) | payer BC ==
[~2022-08-17] MED LIST changes: -PROHANCE 279.3MG/ML 15ML VIAL ONE; -PROHANCE 279.3MG/ML 5ML VIAL ONE
[2022-08-18 23:11] LABS: PSA % FREE 26.2 % (.); PSA FREE 1.57 ng/mL
== END ==
LOC: M PLALAB 12:01
PROVIDERS: ATTEND Urology
DX: R97.20 Elevated prostate specific antigen [PSA] (principal)

== ENCOUNTER → 2023-01-19 | Outpatient (REF) | payer BC ==
[2023-01-19 16:02] LABS: THYROID STIMULATING HORMONE 1.597 uIU/ML (0.55-4.78)
[2023-01-19 16:03] LABS: ALBUMIN 4.5 G/DL (3.2-5.2); ALKALINE PHOSPHATASE 46 U/L (46-116); ALT/SGPT 31 U/L (7.0-40); AST/SGOT 26 U/L (<34); BILIRUBIN,TOTAL 0.6 MG/DL (0.3-1.2); BLOOD UREA NITROGEN 19 MG/DL (9-23); CALCIUM LEVEL 9.9 MG/DL (8.3-10.6); CARBON DIOXIDE LEVEL 27 MMOL/L (20-31); CHLORIDE LEVEL 108 MMOL/L (98-107); CHOLESTEROL LEVEL 204 MG/DL (<200); CHOLESTEROL RISK RATIO 4.74 (<5); CREATININE FOR GFR 1.04 MG/DL (0.70-1.30); GLOMERULAR FILTRATION RATE > 60.0 (>49); GLUCOSE, FASTING 95 MG/DL (74-106); LDL CHOLESTEROL 129.6 MG/DL (<100); POTASSIUM SERUM 4.6 MMOL/L (3.5-5.1); SODIUM LEVEL 144 MMOL/L (136-145); TOTAL PROTEIN 7.4 G/DL (5.7-8.2); TRIGLYCERIDES LEVEL 157 MG/DL (<150)
== END ==
LOC: M SFHCADAM 08:43
PROVIDERS: ATTEND Family Medicine
DX: I11.9 Hypertensive heart disease without heart failure (principal); E78.5 Hyperlipidemia, unspecified; N52.9 Male erectile dysfunction, unspecified

== ENCOUNTER → 2023-01-20 | Outpatient (CLI) | payer MEDICARE, BC ==
[2023-01-23 13:06] LABS: PSA % FREE 29.1 % (.); PSA FREE 1.69 ng/mL; PSA TOTAL 5.8 ng/mL (0.0-4.0)
== END ==
LOC: M PLALAB 15:19
PROVIDERS: ATTEND Urology
DX: R97.20 Elevated prostate specific antigen [PSA] (principal)

== ENCOUNTER → 2023-08-29 | Outpatient (CLI) | payer MEDICARE ==
[2023-08-30 13:43] LABS: PSA FREE 3.5 ng/mL; PSA TOTAL 9.6 ng/mL (< OR = 4.0)
== END ==
LOC: M PLALAB 08:19
PROVIDERS: ATTEND Urology
DX: R97.20 Elevated prostate specific antigen [PSA] (principal)

== ENCOUNTER → 2023-10-17 | Outpatient (CLI) | payer MEDICARE | LOC: M PLALAB 08:10 | PROVIDERS: ATTEND Urology | DX: R97.20 Elevated prostate specific antigen [PSA] (principal) ==

== ENCOUNTER 2023-11-17 06:46 | Day surgery (SDC) | payer MEDICARE ==
[~2023-11-17] VITALS: Ht 175.3 cm; Wt 95.7 kg
[~2023-11-17 06:46] MED LIST changes: +MULTTAB61 PO; +NS 250 ML IV ONE
[2023-11-17 08:20] VITALS: TEMP 98
[2023-11-17 08:41] VITALS: BP 130/72; O2SAT 97
== END 2023-11-17 08:43 | disposition home or self-care (01) ==
LOC: M OPP 06:46
PROVIDERS: ATTEND Internal Medicine Gastroenterology
DX: Z12.11 Encounter for screening for malignant neoplasm of colon (principal); Z12.12 Encounter for screening for malignant neoplasm of rectum; K57.30 Diverticulosis of large intestine without perforation or abscess without bleeding; K64.8 Other hemorrhoids; I10 Essential (primary) hypertension; E78.00 Pure hypercholesterolemia, unspecified; Z79.899 Other long term (current) drug therapy; Z88.8 Allergy status to other drugs, medicaments and biological substances; Z88.5 Allergy status to narcotic agent

== ENCOUNTER → 2023-11-22 | Outpatient (CLI) | payer MEDICARE ==
[~2023-11-22] MED LIST changes: -NS 250 ML IV ONE
[2023-11-22 15:22] LABS: HEMOGLOBIN 16.2 g/dl (13.5-17.5); MEAN CORPUSCULAR HEMOGLOBIN 31.9 pg (27.0-33.0); MEAN CORPUSCULAR HGB CONC 33.8 g/dl (32.0-36.5); MEAN CORPUSCULAR VOLUME 94.5 fl (80.0-96.0); PLATELET COUNT, AUTOMATED 161 10^3/uL (150-450); RED BLOOD COUNT 5.08 10^6/uL (4.30-6.10); WHITE BLOOD COUNT 7.3 10^3/uL (4.0-10.0)
[2023-11-22 15:27] LABS: ALBUMIN 4.2 G/DL (3.2-5.2); BILIRUBIN,TOTAL 0.5 MG/DL (0.3-1.2); CALCIUM LEVEL 10.2 MG/DL (8.3-10.6); CHOLESTEROL RISK RATIO 4.74 (<5); CREATININE FOR GFR 1.32 MG/DL (0.70-1.30); GLOMERULAR FILTRATION RATE 57.9 (>49); LDL CHOLESTEROL 108.6 MG/DL (<100); TOTAL PROTEIN 7.4 G/DL (5.7-8.2)
[2023-11-22 16:11] LABS: HEMOGLOBIN A1c 5.6 % (4.0-6.0)
== END ==
LOC: M PLALAB 11:56
PROVIDERS: ATTEND Family Medicine
DX: E78.5 Hyperlipidemia, unspecified (principal); Z79.899 Other long term (current) drug therapy

== ENCOUNTER → 2024-04-16 | Outpatient (CLI) | payer MEDICARE ==
[2024-04-17 13:47] LABS: PSA FREE 2.3 ng/mL; PSA TOTAL 8.7 ng/mL (< OR = 4.0)
== END ==
LOC: M PLALAB 09:41
PROVIDERS: ATTEND Urology
DX: R97.20 Elevated prostate specific antigen [PSA] (principal)

== ENCOUNTER → 2024-10-09 | Outpatient (CLI) | payer MEDICARE ==
[2024-10-11 10:07] LABS: PSA % FREE 35.0 % (calc) (>25); PSA FREE 3.1 ng/mL; PSA TOTAL 8.8 ng/mL (< OR = 4.0)
== END ==
LOC: M PLALAB 08:30
PROVIDERS: ATTEND Urology
DX: R97.20 Elevated prostate specific antigen [PSA] (principal)

== ENCOUNTER → 2024-11-15 | Outpatient (REF) | payer MEDICARE ==
[2024-11-15 14:46] LABS: PLATELET COUNT, AUTOMATED 186 10^3/uL (150-450)
[2024-11-15 14:49] LABS: ALT/SGPT 32.0 U/L (7.0-40); AST/SGOT 34.0 U/L (<34); CALCIUM LEVEL 9.4 MG/DL (8.3-10.6); CARBON DIOXIDE LEVEL 28.0 MMOL/L (20-31); CHLORIDE LEVEL 107.0 MMOL/L (98-107); CHOLESTEROL LEVEL 173.0 MG/DL (<200); CHOLESTEROL RISK RATIO 3.88 (<5); CREATININE FOR GFR 1.29 MG/DL (0.70-1.30); GLOMERULAR FILTRATION RATE 61.2 (>49); LDL CHOLESTEROL 103.9 MG/DL (<100); NON-HDL-C 128.5 MG/DL; POTASSIUM SERUM 4.5 MMOL/L (3.5-5.1); SODIUM LEVEL 146.0 MMOL/L (136-145); TRIGLYCERIDES LEVEL 123.0 MG/DL (<150)
[2024-11-15 14:58] LABS: ESTIMATED AVERAGE GLUCOSE 114.0 MG/DL (60-110)
== END ==
LOC: M SFHCADAM 08:35
PROVIDERS: ATTEND Family Medicine
DX: I11.9 Hypertensive heart disease without heart failure (principal); R73.03 Prediabetes; E78.5 Hyperlipidemia, unspecified

== ENCOUNTER → 2024-12-12 | Outpatient (CLI) | payer MEDICARE ==
[~2024-12-12] MED LIST changes: +PROHANCE 279.3MG/ML 15ML VIAL As Ordered ONE; +PROHANCE 279.3MG/ML 5ML VIAL As Ordered ONE
== END ==
LOC: M RAD 07:08
PROVIDERS: ATTEND Urology
DX: R97.20 Elevated prostate specific antigen [PSA] (principal)
CPT/HCPCS: 72197; A9576